=== PATIENT | female | born 1990 | race Caucasian/White ===

== ENCOUNTER → 2020-04-10 | Outpatient (CLI) | payer BC | END | disposition home or self-care (01) | LOC: RADMN 13:51 | PROVIDERS: ATTEND Otolaryngology Otology & Neurotology | DX: H71.91 Unspecified cholesteatoma, right ear (principal); H91.90 Unspecified hearing loss, unspecified ear; H95.193 Other disorders following mastoidectomy, bilateral ears | CPT/HCPCS: 70480 ==